=== PATIENT | female | born 1985 | race Caucasian/White ===

== ENCOUNTER 2018-11-18 09:03 | Day surgery (SDC) | payer BC ==
[~2018-11-18] VITALS: Ht 172.7 cm; Wt 89.6 kg
[2018-11-18] VITALS (16 sets, daily range): BP systolic 108–126; BP diastolic 54–66; PULSE 70–112; RESP 12–21; Ht 172.7 cm; Wt 89.6 kg
[~2018-11-18 09:03] MED LIST: CEFAZOLIN 1 GM INJ ONE; CEFAZOLIN 2 GM/50 ML (PMX) 50 ML IVPB SCH; SOD CHLORIDE 0.9% 1,000 ML IV SCH
[2018-11-18] MEDS ORDERED: METF500T24 PO (10:04)
[2018-11-18] MEDS ORDERED: GLYB2.5T2 PO (10:05)
--- NOTE | 2018-11-18 11:57 | PREAC ---
Date/Time of Note Date/Time of Note DATE: 11/18/18 TIME: 11:55 Anesthesia Eval and Record Evaluation Time Pre-Procedure Interview DATE: 11/18/18 TIME: 11:55 Age 33 Sex female NPO: 8 hrs Preoperative diagnosis Hemorrhoid Planned procedure exam under anesthesia, hemorrhoidectomy, rigid sigmoidescopy Past Medical History Past Medical History: Includes Endo: Diabetes GI: Obesity Surgery & Anesthesia Issues No known issue Meds Anticoagulation: No Beta César within 24 hr: No Reason Beta César not given: Pt. not on B-César Reported Medications Glyburide* (Glyburide*) 2.5 Mg Tablet, 2.5 MG PO BID, #60 TAB 11/18/18 Metformin Hcl* (Metformin Hcl*) 500 Mg Tablet, 500 MG PO WITH BREAKFAST DINNE, #60 TAB 11/18/18 Current Medications Cefazolin Sodium/ Dextrose 50 ml @ 100 mls/hr PREOP IVPB ; Start 11/18/18 at 07:00; Stop 11/18/18 at 16:00 Sodium Chloride 1,000 ml @ 75 mls/hr [id number] IV ; Start 11/18/18 at 07:00; Stop 11/18/18 at 20:19 Meds reviewed: Yes Allergies Coded Allergies: No Known Allergies (Verified Allergy, Unknown, 11/18/18) Allergies Reviewed: Yes Labs/Studies Labs Reviewed: Reviewed by anesthesiologist test: Negative Studies: ECG (sr), CXR (nl) Pre-procedure Exam Last vitals Vital Signs Date Temp Pulse Resp B/P (MAP) Pulse Ox O2 O2 Flow FiO2 Time Delivery Rate 11/18/18 98.7 74 18 126/66 98 Room Air 11:03 (86) Airway: Adequate mouth opening Mallampati: Mallampati I Teeth: Normal Lung: Normal Heart: Normal ASA Physical Status ASA physical status: 2 Emergency: None Planned Anesthetic General/MAC: ETT Planned Pain Management Parenteral pain med Pre-operative Attestations Prior to commencing anesthesia and surgery, the patient was re-evaluated, there was verification of: *The patient's identity *The results of appropriate recent lab work and preoperative vital signs *The above evaluation not changing prior to induction *Anesthetic plan, risk benefits, alternative and complications discussed with patient/family; questions answered; patient/family understands, accepts and wishes to proceed. BRANDO KOWALSKI MD Nov 18, 2018 11:57
[2018-11-18] MEDS ORDERED: HYDROmorphONE 1 MG/5 ML IV SYRINGE IV PRN ×3 (12:00)
[2018-11-18] MEDS ORDERED: DIPHENHYDRAMINE 50 MG INJ IV PRN (12:00)
[2018-11-18] MEDS ORDERED: OXYCODONE/ACETAMINOPHEN (5/325) TAB PO PRN ×4 (12:00→14:00)
[2018-11-18] MEDS ORDERED: KETOROLAC 30 MG INJ IV PRN ×2 (12:00→14:00)
[2018-11-18] MEDS ORDERED: hydrALAzine 20 MG INJ IV PRN (12:00)
[2018-11-18] MEDS ORDERED: ONDANSETRON 4 MG INJ IV PRN (12:00)
[2018-11-18] MEDS ORDERED: LABETALOL HCL 20MG INJ IV PRN (12:00)
[2018-11-18] MEDS ORDERED: MEPERIDINE 25 MG INJ IV PRN (12:00)
[2018-11-18] MEDS ORDERED: MIDAZOLAM 1 MG/ML 2 ML INJ ONE (12:17)
[2018-11-18] MEDS ORDERED: PROPOFOL 20 ML ONE (12:17)
[2018-11-18] MEDS ORDERED: ONDANSETRON 4 MG INJ ONE (12:17)
[2018-11-18] MEDS ORDERED: METOCLOPRAMIDE 10 MG INJ ONE (12:18)
[2018-11-18] MEDS ORDERED: BUPIVACAINE 0.5%/EPI (SDV) 30 ML INJ INJ ONE (13:30)
[2018-11-18] MEDS ORDERED: NEOSTIGMINE 3 MG/3 ML SYRINGE ONE (13:34)
[2018-11-18] MEDS ORDERED: KETOROLAC 30 MG INJ ONE (13:34)
[2018-11-18] MEDS ORDERED: ROCURONIUM 50 MG INJ ONE (13:34)
[2018-11-18] MEDS ORDERED: GLYCOPYRROLATE 1 MG INJ ONE (13:34)
[2018-11-18] MEDS ORDERED: BUPIVACAINE 0.5%/EPI (SDV) 30 ML INJ ONE (13:37)
[2018-11-18] MEDS ORDERED: BACITRACIN/POLYMYXIN 28.35 GM OINT TOP ONE (13:48)
[2018-11-18] MEDS ORDERED: BACITRACIN/POLYMYXIN 0.9 GM OINT TOP ONE (13:50)
--- NOTE | 2018-11-18 13:58 | HPN ---
Date/Time of Note Date/Time of Note DATE: 11/18/18 TIME: 13:58 Interval H&P Admission Note Pt. seen H&P reviewed: No system changes EVELIN MELENDEZ MD Nov 18, 2018 13:58
[2018-11-18] MEDS ORDERED: IBUPROFEN 600 MG TAB PO PRN (14:00)
--- NOTE | 2018-11-18 14:03 | OPR ---
Date/Time of Note Date/Time of Note DATE: 11/18/18 TIME: 13:59 Operative Report Procedure Date: Nov 18, 2018 Preoperative Diagnosis Internal/external hemorrhoids Postoperative Diagnosis Internal/external hemorrhoids Operation/Procedure Performed 1. Internal/external hemorrhoidectomy 2. Rigid sigmoidoscopy Surgeon see signature line Surface Hydrologist None Anesthesia Type: general Anesthesiologist: BRANDO KOWALSKI MD Estimated Blood Loss: minimal Transfusion none Specimen Internal/external hemorrhoids Grafts/Implants none Complications none Pt Condition Post Procedure: stable Disposition: PACU Indications The patient is a 33-year-old female who presented to the office with complaints of hemorrhoids. These have been present since her . Patient had tried and failed medical therapy without any relief. She was scheduled for exam under anesthesia, total internal/external hemorrhoidectomy and rigid sigmoidoscopy. All risks and benefits of the procedure including, but not limited to: Wound infection, excessive bleeding, prolonged wound healing, incontinence to stool/feces which may be temporary versus permanent, anal stricture, hemorrhoid recurrence, etc. were all explained to the patient in full detail. The patient fully understood and wished to proceed with the procedure. Informed consent was obtained. The patient was instructed to take enemas the day before and morning of surgery. Procedure Description Patient was brought to the operating room and kept on her stretcher. Bilateral sequential compression devices were placed on both lower extremities. A dose of broad-spectrum perioperative intravenous antibiotics was given. After the induction of smooth general anesthesia the patient was positioned in the prone position with all pressure points padded. The anus, perineum and buttocks were prepped and draped in standard surgical fashion. After performance of the surgical timeout 0.5% Marcaine with epinephrine was injected around the anus. Exam under anesthesia did not show any fissures or fistulas. A single posterior midline external hemorrhoid was identified. Very small internal hemorrhoids we re identified in the right lateral position. Attention was then turned towards the external hemorrhoid. It was grasped with a Johansen clamp. Incision was made in the perianal skin using the cut mode of the Bovie electrocautery. The external hemorrhoids was then transected at its base using the hand-held vessel sealing device and passed off the field as specimen. Attention was then turned to the internal hemorrhoids. They were each grasped using Johansen clamps and transected at their base using the hand-held vessel sealing device and passed off the field as specimen. Hemostasis was then inspected for and noted to be adequate. Rigid sigmoidoscopy was then performed. Quality of the prep was good. There were no masses visualized in the areas of the distal rectum and anus which could be seen with the sigmoidoscope. The excision sites of the external hemorrhoid was then reapproximated using interrupted 3-0 chromic sutures. The anal canal comfortably fit 2 fingers upon completion of the procedure. Further local anesthesia was then injected around the anus. The area was then irrigated. Bacitracin ointment was applied as well as sterile dressings. The patient was then awoken from anesthesia and transferred to recovery room in stable condition. All counts were correct at the end of the case 2. EVELIN MELENDEZ MD Nov 18, 2018 14:03
--- NOTE | 2018-11-19 07:51 | PAC ---
Date/Time of Note Date/Time of Note DATE: 11/19/18 TIME: 07:51 Post-Anesthesia Notes Post-Anesthesia Note Last documented vital signs Vital Signs Date Temp Pulse Resp B/P (MAP) Pulse Ox O2 O2 Flow FiO2 Time Delivery Rate 11/18/18 98.2 84 14 114/62 98 Room Air 15:23 (79) 11/18/18 10.0 14:28 11/18/18 98.5 14:14 Activity: WNL Respiratory function: WNL Cardiovascular function: WNL Mental status: Baseline Pain reasonably controlled: Yes Hydration appropriate: Yes Nausea/Vomiting absent: No BRANDO KOWALSKI MD Nov 19, 2018 07:51
== END 2018-11-18 16:25 | disposition home or self-care (01) ==
LOC: SDS 09:03
PROVIDERS: ATTEND Surgery
DX: K64.4 Residual hemorrhoidal skin tags (principal); K64.8 Other hemorrhoids; E11.9 Type 2 diabetes mellitus without complications; E66.9 Obesity, unspecified; Z68.30 Body mass index [BMI] 30.0-30.9, adult
CPT/HCPCS: 46255; 82962; 88302; J1170; J1885; J2250; J2405; J2710; J2765; Z7610; J0690